=== PATIENT | male | born 1960 ===

== ENCOUNTER 2021-04-03 05:47 | Day surgery (SDC) | payer OTHER ==
[~2021-04-03 05:47] MED LIST: COZAAR25 MG PO
== END 2021-04-03 11:50 | disposition home or self-care (01) ==
LOC: CIR.AMB 05:47
PROVIDERS: ATTEND Otolaryngology Otology & Neurotology
DX: H72.02 Central perforation of tympanic membrane, left ear (principal); Z20.822 Contact with and (suspected) exposure to COVID-19